=== PATIENT | female | born 1950 | race Caucasian/White ===

== ENCOUNTER → 2020-08-20 | Outpatient (CLI) | payer MEDICARE | END | disposition home or self-care (01) | LOC: CFH 14:29 | PROVIDERS: ATTEND Student in an Organized Health Care Education/Training Program | DX: S09.90XA Unspecified injury of head, initial encounter (principal); W19.XXXA Unspecified fall, initial encounter; G31.89 Other specified degenerative diseases of nervous system; J32.9 Chronic sinusitis, unspecified; Y93.89 Activity, other specified; Y92.89 Other specified places as the place of occurrence of the external cause; Y99.8 Other external cause status | CPT/HCPCS: 70450 ==

== ENCOUNTER 2020-09-06 15:48 | Outpatient (CLI) | payer MEDICARE ==
[2020-09-06 16:21] LABS: ANION GAP 5 mmol/L (5-15); CALCIUM 9.2 mg/dL (8.5-10.1); CHLORIDE 108 mmol/L (98-107); CREATININE 0.87 mg/dL (0.55-1.02)
[2020-09-06] MEDS ORDERED: OMNIPAQUE 350 MG/ML, 100ML BOTTLE ONE (16:30)
== END 2020-09-06 23:59 | disposition home or self-care (01) ==
LOC: RAD 15:48
PROVIDERS: ATTEND Physician Assistant
DX: K57.30 Diverticulosis of large intestine without perforation or abscess without bleeding (principal); M51.36 Other intervertebral disc degeneration, lumbar region; N20.0 Calculus of kidney; R10.32 Left lower quadrant pain
CPT/HCPCS: 36415; 74177; 80048; Q9967